=== PATIENT | male | born 1975 | race Caucasian/White ===

== ENCOUNTER → 2020-03-21 | Outpatient (CLI) | payer BC ==
--- NOTE | 2020-03-21 09:47 | XR ---
EXAMINATION TYPE: XR ribs RT w pa chest xray DATE OF EXAM: 03/21/2020 CLINICAL HISTORY: Anterior superior right rib pain for 5 months with no known injury TECHNIQUE: Single frontal view of the chest is obtained. 2 views of the right ribs were also obtained . COMPARISON: None FINDINGS: There is no focal air space opacity, pleural effusion, or pneumothorax seen. The cardiac silhouette size is within normal limits. The osseous structures are intact. No suspicious osseous l esion of the right ribs. IMPRESSION: No acute cardiopulmonary process. No acute fracture or dislocation in the right ribs nor suspicious osseous lesion.
== END | disposition home or self-care (01) ==
LOC: RADXRYALE 09:20
PROVIDERS: ATTEND Family Medicine
DX: R07.89 Other chest pain (principal); M25.511 Pain in right shoulder

== ENCOUNTER → 2020-03-29 | Outpatient (CLI) | payer BC ==
--- NOTE | 2020-03-30 10:53 | MR ---
EXAMINATION TYPE: MR shoulder RT wo con DATE OF EXAM: 03/29/2020 COMPARISON: None HISTORY: Rt shoulder pain TECHNIQUE: Multiplanar, multisequence imaging of the right shoulder is performed without contrast. FINDINGS: Exam is limited due to artifact. There is a small amount of fluid in the subacromial subdeltoid bursa. Images are degraded by artifact . There is ill-definition increased signal involving the anterior fibers of the supraspinatus tendon di stally and at the level of the insertion measuring approximately 6.5 mm compatible with a partial thr ough thickness tear. Infraspinatus and subscapularis tendons appear intact. Mild intrasubstance signal near the insertion of the subscapularis tendon suggestive of tendinosis. Hypertrophic change of the AC joint is noted and there is moderate impingement supraspinatus tendon a nd muscle. Assessment of bony rate labrum is limited by artifact. Glenohumeral ligaments appear intact. IMPRESSION: 1. Limited exam demonstrates findings suspicious for a 6.5 cm partial through thickness tear involvin g the distal margin and insertion of the anterior fibers of the supraspinatus tendon. No retraction. 2. AC joint arthropathy with impingement.
== END | disposition home or self-care (01) ==
LOC: RADMRIMAIN 16:45
PROVIDERS: ATTEND Family Medicine
DX: M12.811 Other specific arthropathies, not elsewhere classified, right shoulder (principal); R07.89 Other chest pain

== ENCOUNTER → 2024-09-05 | Outpatient (CLI) | payer BC ==
--- NOTE | 2024-09-05 11:50 | XR ---
EXAMINATION TYPE: XR foot complete RT DATE OF EXAM: 09/05/2024 11:45 AM COMPARISON: None. CLINICAL INDICATION: Male, 48 years old with history of [id number] RT FOOT PAIN, TECHNIQUE: 3 view(s) obtained. FINDINGS: No acute fracture or dislocation evident. Joint spaces are preserved. Soft tissues appear normal. Follow up exams can be performed 7-10 days from acute trauma for continued pain. IMPRESSION: 1. No Acute osseous abnormality [facility] Mustapha Lazar, , 09/05/2024 11:47 AM
== END | disposition home or self-care (01) ==
LOC: RADXRYALE 11:25
PROVIDERS: ATTEND Family Medicine
DX: M79.671 Pain in right foot (principal)